=== PATIENT | female | born 1955 | race Hispanic/Latino ===

== ENCOUNTER 2019-04-21 18:38 | Emergency (ER) | payer MEDICARE ==
[~2019-04-21] VITALS: Ht 167.6 cm; Wt 117.9 kg
--- OUTSIDE RECORDS SUMMARY | 2019-04-21 18:41 | XMS REPORT | Clinical Summary ---
Author Author [employer] Address Unknown Phone Unavailable Care Team Providers Care Adjunct Business Instructor Name Role Phone Dwight Sevilla MD PCP Allergies No Known Allergies Medications End Date Status Medication Sig Dispensed Refills Start Date Active naproxen (NAPROSYN) 500 Take 500 mg 0 MG tablet by mouth 2 (two) times a day as needed for mild pain. Active glipiZIDE (GLUCOTROL) 10 Take 10 mg by 0 MG tablet mouth 2 (two) times a day before meals. Active pioglitazone (ACTOS) 30 Take 30 mg by 0 MG tablet mouth daily. Active olmesartan-hydrochlorothi Take 1 tablet 0 azide (BENICAR HCT) by mouth 40-12.5 mg per tablet daily. Active metFORMIN (GLUCOPHAGE) Take 1,000 mg 0 1,000 mg tablet by mouth 2 (two) times a day with meals. Active atorvastatin (LIPITOR) 20 Take 20 mg by 0 MG tablet mouth daily. Default OP ins Active metoprolol tartrate Take 50 mg by 0 (LOPRESSOR) 50 mg tablet mouth 2 (two) times a day. Active Problems Problem Noted Date Unstable angina 08/17/2018 Encounters Care Team Description Date Type Specialty Ulises Bautista MD Joglekar, Swati, MD Unstable angina (HCC) (Primary Dx) 08/17/2018 Emergency Emergency Medicine after 04/20/2018 Social History Date Tobacco Use Types Packs/Day Years Used Former Smoker Smokeless Tobacco: Never Used Drinks/Week oz/Week Comments Alcohol Use No Alcohol Habits Answer Date Recorded How often do you have a drink containing alcohol? Never 08/17/2018 How many drinks containing alcohol do you have on Not asked a typical day when you are drinking? How often do you have six or more drinks on one Not asked occasion? Sex Assigned at Date Recorded Not on file Industry Job Start Date Occupation Not on file Not on file Not on file Travel End Travel History Travel Start No recent travel history available. Last Filed Vital Signs Reading Time Taken Comments Vital Sign 165/78 08/17/2018 3:20 PM SOUND EFFECTS MANAGER Blood Pressure 67 08/17/2018 3:20 PM SOUND EFFECTS MANAGER Pulse 36.4 C (97.5 F) 08/17/2018 3:20 PM SOUND EFFECTS MANAGER Temperature 16 08/17/2018 3:20 PM SOUND EFFECTS MANAGER Respiratory Rate 98% 08/17/2018 3:20 PM SOUND EFFECTS MANAGER Oxygen Saturation - - Inhaled Oxygen Concentration - - Weight 167.6 cm (5' 6") 08/17/2018 10:01 AM SOUND EFFECTS MANAGER Height - - Body Mass Index Plan of Treatment Health Maintenance Due Date Last Done Comments CERVICAL CANCER SCREENING 1974 BREAST CANCER SCREENING 2003 COLONOSCOPY SCREENING 2003 SHINGLES VACCINES (#1) 2003 65+ PNEUMOCOCCAL VACCINE 2018 (1 of 2 - PCV13) INFLUENZA VACCINE 03/11/2019 Procedures Comments Procedure Name Priority Date/Time Associated Diagnosis TROPONIN Timed 08/17/2018 4:20 PM SOUND EFFECTS MANAGER POC GLUCOSE Routine 08/17/2018 4:11 PM SOUND EFFECTS MANAGER ECG 12-LEAD STAT 08/17/2018 1:51 PM SOUND EFFECTS MANAGER TROPONIN Timed 08/17/2018 1:05 PM SOUND EFFECTS MANAGER XR CHEST 1 VW PORTABLE STAT 08/17/2018 10:43 AM SOUND EFFECTS MANAGER ECG ED PRELIMINARY Routine 08/17/2018 INTERPRETATION 10:36 AM SOUND EFFECTS MANAGER ECG 12-LEAD STAT 08/17/2018 10:20 AM SOUND EFFECTS MANAGER ESTIMATED GFR STAT 08/17/2018 10:13 AM SOUND EFFECTS MANAGER B NATRIURETIC PEPTIDE STAT 08/17/2018 10:13 AM SOUND EFFECTS MANAGER TROPONIN STAT 08/17/2018 10:13 AM SOUND EFFECTS MANAGER COMPREHENSIVE METABOLIC STAT 08/17/2018 PANEL 10:13 AM SOUND EFFECTS MANAGER HC COMPLETE BLD COUNT STAT 08/17/2018 W/AUTO DIFF 10:13 AM SOUND EFFECTS MANAGER after 04/20/2018 Results * Troponin (08/17/2018 4:20 PM SOUND EFFECTS MANAGER) Only the most recent of 3 results within the time period is included. [facility] Troponin <0.30 0.00 - 0.30 ng/mL [place] Comment: MORMON MURPHY 0.11 - 1.49 [facility] indicate increased risk of acute coronary syndrome. >=1.5 ng/ml Consistent with acute myocardial infarction. The diagnostic value of a single normal or non-diagnostic result is questionable.Serial samples at 2-6 hour intervals are required to rule out acute myocardial injury. Specimen Plasma specimen Performing Organization Address City/State/Zipcode Phone Number [place] [phone] [place] [address] PATHOLOGY AND GENOMIC MEDICINE [place] [id number] * POC glucose (08/17/2018 4:11 PM SOUND EFFECTS MANAGER) [facility] POC glucose 102 (H) 65 - 100 mg/dL [place] Comment: MORMON MURPHY Meter ID: [id number] [facility] Promotions Associate: [facility] Specimen Performing Organization Address City/State/Zipcode Phone Number [place] [phone] [place] [address] PATHOLOGY AND GENOMIC MEDICINE [place] [id number] * ECG 12 lead (08/17/2018 1:51 PM SOUND EFFECTS MANAGER) Only the most recent of 2 results within the time period is included. [facility] Ventricular 79 [facility] rate Atrial rate 79 [facility] ND interval 156 [facility] QRSD interval 94 [facility] QT interval 386 [facility] QTC interval 442 [facility] P axis 1 74 [facility] QRS axis 1 -24 [facility] T wave axis 75 [facility] EKG impression Normal sinus rhythm-Possible [facility] MUSE Left atrial enlargement-Low voltage QRS-Borderline ECG-No previous ECGs available- Specimen Narrative Performed At Performing Organization Address City/State/Zipcode Phone Number [facility] MUSE [address] [place] [address] * XR Chest 1 Vw Portable (08/17/2018 10:43 AM SOUND EFFECTS MANAGER) Specimen Narrative Performed At EXAMINATION:XR CHEST 1 VW PORTABLE RADIANT CLINICAL HISTORY:Cough XR CHEST 1 VW PORTABLEimages are submitted COMPARISON:NONE FINDINGS: The cardiac silhouette is normal in size. The pulmonary vasculature is within normal limits. The lung zones have no focal area of consolidation. There is no pleural effusion or pneumothorax. IMPRESSION: 1. There is no acute cardiopulmonary disease. [id number] Procedure Note Hm Interface, Radiology Results Incoming - 08/17/2018 11:00 AM SOUND EFFECTS MANAGER EXAMINATION: XR CHEST 1 VW PORTABLE CLINICAL HISTORY: Cough XR CHEST 1 VW PORTABLE images are submitted COMPARISON: NONE FINDINGS: The cardiac silhouette is normal in size. The pulmonary vasculature is within normal limits. The lung zones have no focal area of consolidation. There is no pleural effusion or pneumothorax. IMPRESSION: 1. There is no acute cardiopulmonary disease. [id number] Performing Organization Address City/State/Zipcode Phone Number [facility] [address] [place] [address] * ECG ED Preliminary Interpretation - Not an Order (08/17/2018 10:36 AM SOUND EFFECTS MANAGER) Narrative Performed At Ulises Bautista MD 08/17/20185:16 PM ECG ED Preliminary Interpretation - Not an Order Performed by: Ulises Bautista MD Authorized by: Ulises Bautista MD ECG reviewed by ED Physician in the absence of a certified income tax preparer: yes Previous ECG: Previous ECG:Compared to current Interpretation: Interpretation: normal Rate: ECG rate:64 ECG rate assessment: normal Rhythm: Rhythm: sinus rhythm Ectopy: Ectopy: none QRS: QRS axis:Normal Conduction: Conduction: normal ST segments: ST segments:Normal * Estimated GFR (08/17/2018 10:13 AM SOUND EFFECTS MANAGER) [facility] Signature Estimated GFR 67 mL/min/1.73 m2 [place] Comment: [facility] G1 >=90 Normal or high G2 60-89Mildly decreased [id number] Mildly to moderately decreased [id number] Moderately to severely decreased G4 15-29Severely decreased G5 <15Kidney failure The eGFR was calculated using the Chronic Kidney Disease Epidemiology Collaboration (CKD-EPI) equation. Interpretation is based on recommendations of the National Kidney Foundation-Kidney Disease Outcomes Quality Initiative (NKF-KDOQI) published in 2014. Specimen Plasma specimen Performing Organization Address City/State/Zipcode Phone Number [facility] DEPARTMENT OF [address] [place] [address] PATHOLOGY AND GENOMIC MEDICINE [facility] [address] [place], [place] [id number] [place] [address] * CBC with platelet and differential (08/17/2018 10:13 AM SOUND EFFECTS MANAGER) WBC 8.9 4.2 - 11.0 k/uL [facility] RBC 5.17 4.04 - 5.86 m/uL [facility] HGB 15.5 (H) 11.5 - 15.3 g/dL [facility] HCT 45.9 (H) 34.0 - 45.0 % [facility] MCV 88.8 80.0 - 98.0 fL [facility] MCH 30.0 27.0 - 34.0 pg [facility] MCHC 33.8 31.5 - 36.5 g/dL [facility] RDW - SD 40.8 37.0 - 51.0 fL [facility] MPV 11.4 (H) 7.4 - 10.4 fL [facility] Platelet count 185 150 - 400 k/uL [facility] Nucleated RBC 0.00 /100 WBC [facility] Neutrophils 50.2 36.0 - 66.0 % [facility] Lymphocytes 35.4 24.0 - 44.0 % [facility] Monocytes 5.8 0.0 - 6.0 % [facility] Eosinophils 7.6 (H) 0.0 - 6.0 % [facility] Basophils 0.7 0.0 - 1.2 % [facility] Immature 0.3 0.0 - 1.0 % [place] granulocytes [facility] Specimen Blood Performing Organization Address City/State/Zipcode Phone Number [facility] [address] [place] [address] PATHOLOGY AND GENOMIC MEDICINE [facility] [address] * B natriuretic peptide (08/17/2018 10:13 AM SOUND EFFECTS MANAGER) Pathologist [facility] BNP 87 0 - 100 pg/mL [facility] Specimen Blood Performing Organization Address City/[facility] Phone Number [place] [address] [place] [address] PATHOLOGY AND GENOMIC MEDICINE [place] [address] [address] * Comprehensive metabolic panel (08/17/2018 10:13 AM SOUND EFFECTS MANAGER) Pathologist [facility] Sodium 137 135 - 150 mEq/L [facility] Potassium 4.6 3.5 - 5.0 mEq/L [facility] Chloride 98 98 - 112 mEq/L [facility] CO2 26 24 - 31 mmol/L [facility] Anion gap 13@ANIO 7 - 15 mEq/L [facility] BUN 16 7 - 18 mg/dL [facility] Creatinine 0.90 0.50 - 0.90 mg/dL [facility] Glucose 187 (H) 65 - 100 mg/dL [facility] Calcium 9.8 8.8 - 10.2 mg/dL [facility] Protein 6.5 6.3 - 8.3 g/dL [facility] Albumin 3.8 3.5 - 5.0 g/dL [facility] A/G ratio 1.4 0.7 - 3.8 [facility] Alkaline 57 0 - 104 U/L [place] phosphatase [facility] AST 17 10 - 35 U/L [facility] ALT 20 5 - 50 U/L [facility] Total bilirubin 0.7 0.2 - 1.2 mg/dL [facility] Specimen Plasma specimen Performing Organization Address City/State/Zipcode Phone Number [facility] DEPARTMENT OF [facility] [place] [address] PATHOLOGY AND GENOMIC MEDICINE [place] [address] [place] [address] [facility] after 04/20/2018 Insurance Type Payer Benefit Subscriber ID Effective Phone Address Plan / Dates Group PPO HUMANA MEDICARE HUMANA xxxxxxxxx 2018- MEDICARE Present PPO/PFFS/E [facility] Advance Directives For more information, please contact: [phone] Patient Precision Filer Hand Explanation Type Date Recorded Advance Directives, 08/17/2018 11:59 AM Living Will and Medical Power of Glass Products Inspector
[2019-04-21] MEDS ORDERED: LABETALOL HCL 5 MG/ML 20ML VIAL IV ONE (18:49)
[2019-04-21] MEDS ORDERED: LABETALOL HCL 20 ML ONE (18:57)
--- NOTE | 2019-04-21 20:06 | Diagnostic Imaging Report ---
History: High blood pressure, dizziness Comparison studies:None Technique: Axial images were obtained from the skull base to the vertex. Coronal and sagittal images reconstructed from the axial data. Intravenous contrast: None Dose modulation, iterative reconstruction, and/or weight based adjustment of the mA/kV was utilized to reduce the radiation dose to as low as reasonably achievable. Findings: Scalp/skull: No abnormalities. Extra-axial spaces: No masses. No fluid collections. Brain sulci: Mildly prominent. Ventricles: Mild compensatory dilatation. No hydrocephalus. Parenchyma: Scattered small hypodensities in the supratentorial white matter are small vessel ischemic changes. Small chronic lacunar referred at the left anterior limb of the internal capsule. No masses, hemorrhage, acute or chronic cortical vascular insults. Sellar/suprasellar region: No abnormalities. Craniocervical junction: Patent foramen magnum. No Chiari one malformation. Incidental findings: Atherosclerotic calcifications in the carotid siphons . Impression: No acute abnormalities. Chronic findings: 1. Mild generalized volume loss. 2. Mild supratentorial white matter small vessel ischemic changes. Signed by: DR Nico Norton M.D. on 04/21/2019 8:03 PM
== END 2019-04-21 20:30 | disposition home or self-care (01) ==
LOC: FSED 18:38
DX: R42 Dizziness and giddiness (principal)
CPT/HCPCS: 70450; 80048; 84484; 85025; 99284; J3490

== ENCOUNTER 2020-09-12 14:40 | Emergency (ER) | payer OTHER ==
[~2020-09-12] VITALS: Ht 167.6 cm; Wt 117.9 kg
[2020-09-12] MEDS ORDERED: TYLENOL # 31 EA PO (15:59)
[2020-09-12] MEDS ORDERED: AUGMENTIN 875-1 EACH PO (15:59)
== END 2020-09-12 17:42 | disposition home or self-care (01) ==
LOC: ER 15:22
DX: U07.1 COVID-19 (principal); H66.92 Otitis media, unspecified, left ear; R05 Cough; I10 Essential (primary) hypertension; E11.9 Type 2 diabetes mellitus without complications; E78.5 Hyperlipidemia, unspecified; Z86.73 Personal history of transient ischemic attack (TIA), and cerebral infarction without residual deficits
CPT/HCPCS: 71045; 99283